=== PATIENT | male | born 1980 | race Caucasian/White ===

== ENCOUNTER 2024-02-14 15:43 | Emergency (ER) | payer OTHER, MEDICAID, SELFPAY ==
[2024-02-14 15:49] VITALS: BP 151/88; PULSE 95; RESP 18; TEMP 37; O2SAT 99; BMI 30.7
--- NOTE | 2024-02-14 16:14 | ED.ABDPAIN ---
HPI - Abdominal Pain <Zander Qureshi PA-C - Last Filed: 02/14/24 19:05> General Chief Complaint: Abdominal Pain Stated Complaint: abd px, hernia sx on 01/23 Time Seen by Provider: 02/14/24 16:14 Source: patient Mode of arrival: Ambulatory History of Present Illness HPI narrative: This is a 43-year-old male presents emergency department due to acute onset right lower quadrant pain. Patient reports having a hernia repair 21 days ago on 01/24/[address] Turk to the area. Two days ago he reports coughing causing some pain and went to [facility]. He was eventually discharged. He began coughing again today and noticed some sharp right lower quadrant pain where the hernia repair was done. Reports mild nausea. Denies any blood in his stool, diarrhea, constipation, fevers, chest pain, shortness of breath, or any other concerning signs or symptoms. Related Data Home Medications Medication Instructions Recorded Confirmed citalopram 40 mg tablet (Celexa) 40 mg PO QDAY ##0 03/17/13 hydroxyzine HCl 25 mg tablet 25 mg ##0 03/17/13 lamotrigine 100 mg tablet 100 mg PO ##0 03/17/13 (Lamictal) levetiracetam 1,000 mg tablet 1,000 mg PO BID ##0 03/17/13 (Keppra) Allergies Allergy/AdvReac Type Severity Reaction Status Date / Time morphine Allergy Intermediate SEVERELY Verified 02/14/24 16:31 CRAZY Review of Systems <Zander Qureshi PA-C - Last Filed: 02/14/24 19:05> Review of Systems Narrative: GENERAL: Denies chills, fatigue, malaise, fever, sweats. HEENT: Denies sinus pain, ear pain, sore throat, difficulty swallowing, dizziness. RESPIRATORY: Denies dyspnea, cough, wheezing, hemoptysis, sputum. CARDIOVASCULAR: Denies chest pain, palpitations, orthopnea, edema, GASTROINTESTINAL: Reports nausea and right lower quadrant abdominal pain : Denies dysuria, frequency, incontinence, hematuria, urinary retention. MUSCULOSKELETAL: denies weakness, joint pain, or bony pain SKIN: Denies rash, skin lesions, or other NEUROLOGIC: Denies weakness, headache, numbness, change in speech, confusion, seizures, incoordination. PSYCHIATRIC: No concerning psychosocial issues. 12 point review of systems is negative except for those stated above Patient History <Zander Qureshi PA-C - Last Filed: 02/14/24 19:05> Social History Smoking Status: Never smoker Smoking Status: Never smoker alcohol intake frequency: holidays/special occasions only Substance Use Type: does not use Exam <Zander Qureshi PA-C - Last Filed: 02/14/24 19:05> Narrative Exam Narrative: GENERAL: Well-developed patient, in mild distress. HEAD: Atraumatic. Normocephalic. EYES: Pupils equal round and reactive. Extraocular motions intact. No scleral icterus. No injection or drainage. ENT: Nose without bleeding, purulent drainage. Throat without erythema, tonsillar hypertrophy or exudate. Airway patent. NECK: Trachea midline. Non tender EXTREMITIES: No edema or joint tenderness. NEURO: AOx3. SKIN: No rash or erythema of visible areas Abdomen: Nondistended, tenderness to palpation to the right lower quadrant, no masses or hernias felt. Initial Vital Signs Initial Vital Signs: Vital Signs Temperature 98.6 F 02/14/24 15:49 Pulse Rate 95 H 02/14/24 15:49 Respiratory Rate 18 02/14/24 15:49 Blood Pressure 151/88 H 02/14/24 15:49 Pulse Oximetry 99 02/14/24 15:49 Oxygen Delivery Method Room Air 02/14/24 15:49 <Malathi Whiteside MD - Last Filed: 02/19/24 07:37> Initial Vital Signs Initial Vital Signs: Vital Signs Temperature 98.6 F 02/14/24 15:49 Pulse Rate 95 H 02/14/24 15:49 Respiratory Rate 18 02/14/24 15:49 Blood Pressure 151/88 H 02/14/24 15:49 Pulse Oximetry 99 02/14/24 15:49 Oxygen Delivery Method Room Air 02/14/24 15:49 Course <Zander Qureshi PA-C - Last Filed: 02/14/24 19:05> Orders Ordered: Discontinued Medications Hydromorphone HCl (Hydromorphone 0.5 Mg Inj) 0.5 mg IV NOW ONE Stop: 02/14/24 16:50 Last Admin: 02/14/24 16:59 Dose: 0.5 mg Documented By: JIM Hydromorphone HCl (Hydromorphone 0.5 Mg Inj) 0.5 mg IV NOW ONE Stop: 02/14/24 17:34 Last Admin: 02/14/24 17:38 Dose: 0.5 mg Documented By: YOANNA Sodium Chloride (Normal Saline 0.9%) 1,000 mls @ 1,000 mls/hr IV BOLUS ONE Stop: 02/14/24 17:20 Last Infusion: 02/14/24 18:51 Dose: Infused Documented By: Admin: 02/14/24 16:59 Dose: 1,000 mls/hr Documented By: JMI Morphine Sulfate (Morphine 4 Mg/Ml Inj) 4 mg IV NOW ONE Stop: 02/14/24 16:22 Last Admin: 02/14/24 18:54 Dose: Not Given Documented By: YOANNA Ondansetron HCl (Ondansetron 4 Mg/2 Ml Inj) 4 mg IV NOW ONE Stop: 02/14/24 16:22 Last Admin: 02/14/24 16:58 Dose: 4 mg Documented By: JIM Vital Signs Vital signs: Vital Signs - 8 hr 02/14/24 15:49 Temperature 98.6 F Pulse Rate 95 H Respiratory Rate 18 Blood Pressure 151/88 H Pulse Oximetry 99 Oxygen Delivery Method Room Air <Malathi Whiteside MD - Last Filed: 02/19/24 07:37> Orders Ordered: Discontinued Medications Hydromorphone HCl (Hydromorphone 0.5 Mg Inj) 0.5 mg IV NOW ONE Stop: 02/14/24 16:50 Last Admin: 02/14/24 16:59 Dose: 0.5 mg Documented By: JIM Hydromorphone HCl (Hydromorphone 0.5 Mg Inj) 0.5 mg IV NOW ONE Stop: 02/14/24 17:34 Last Admin: 02/14/24 17:38 Dose: 0.5 mg Documented By: YOANNA Sodium Chloride (Normal Saline 0.9%) 1,000 mls @ 1,000 mls/hr IV BOLUS ONE Stop: 02/14/24 17:20 Last Infusion: 02/14/24 18:51 Dose: Infused Documented By: Admin: 02/14/24 16:59 Dose: 1,000 mls/hr Documented By: JIM Morphine Sulfate (Morphine 4 Mg/Ml Inj) 4 mg IV NOW ONE Stop: 02/14/24 16:22 Last Admin: 02/14/24 18:54 Dose: Not Given Documented By: YOANNA Ondansetron HCl (Ondansetron 4 Mg/2 Ml Inj) 4 mg IV NOW ONE Stop: 02/14/24 16:22 Last Admin: 02/14/24 16:58 Dose: 4 mg Documented By: JIM Vital Signs Vital signs: Vital Signs - 8 hr 02/14/24 15:49 Temperature 98.6 F Pulse Rate 95 H Respiratory Rate 18 Blood Pressure 151/88 H Pulse Oximetry 99 Oxygen Delivery Method Room Air MDM - Abdominal Pain <Zander Qureshi PA-C - Last Filed: 02/14/24 19:05> Lab Data 02/14/24 16:42 02/14/24 16:42 Labs: Lab Results 02/14/24 Range/Units 16:42 WBC 10.6 (4.5-11.0) X10^3/uL RBC 4.69 (4.5-5.9) X10^6/uL Hgb 13.7 (13.5-17.5) g/dL Hct 41.0 (41-53) % MCV 87.4 (80-100) fL MCH 29.2 (26-34) PG MCHC 33.4 (30-36) % RDW 12.6 (11.6-14.8) % Plt Count 308 (150-400) X10^3/uL Neut % (Auto) 69.1 (50-75) % Lymph % (Auto) 23.6 L (25-40) % [place] % (Auto) 5.8 (3-14) % Eos % (Auto) 0.9 L (2-4) % Baso % (Auto) 0.6 (0-2) % Neut # (Auto) 7300 H (9028-3741) /uL Lymph # (Auto) 2500 (9605-0054) /uL [place] # (Auto) 600 (0-900) /uL Eos # (Auto) 100 (0-450) /uL Baso # (Auto) 100 (0-100) /uL Sodium 138 (137-145) mmol/L Potassium 3.5 (3.4-5.1) mmol/L Chloride 104 (98-107) mmol/L Carbon Dioxide 28 (22-32) mmol/L BUN 9 (9-20) mg/dL Creatinine 0.51 L (0.66-1.25) mg/dL Estimated GFR > 60 (>60) mL/min BUN/Creatinine Ratio 17.6 (6-22) Glucose 93 (70-100) mg/dL Calcium 9.1 (8.4-10.2) mg/dL Total Bilirubin 0.6 (0.2-1.3) mg/dL AST 28 (17-59) IU/L ALT 21 (<50) IU/L Alkaline Phosphatase 49 (38-126) U/L Total Protein 7.8 (6.3-8.2) g/dL Albumin 4.8 (3.5-5.0) g/dL Globulin 3.0 (1.7-4.1) g/dL Albumin/Globulin Ratio 1.6 (1.0-2.8) Lipase 75 (23-300) U/L Imaging Data Chest x-ray: Radiologist's Impression: [address] [address] XRay Report Signed Patient: Robin Bennett MR#: [id number] : 1980 Acct:[id number] Age/Sex: 43 / M Date of Service: 02/14/24 Loc: ED Accession Number: [id number] Procedure: XR chest 1V Ordering Provider: Zander Qureshi P.A-C PROCEDURE: XR CHEST 1V INDICATIONS: Abdominal pain TECHNIQUE: One view of the chest was acquired. COMPARISON: [facility], CHEST 2 VIEW, 03/17/2013, 14:00. FINDINGS: Surgical changes and devices: None. Lungs and pleura: Lungs are clear. No pleural effusions or pneumothorax. Mediastinum: Mediastinal contours appear normal. Heart size is normal. Bones and chest wall: No suspicious bony lesions. Overlying soft tissues appear unremarkable. IMPRESSION: No acute pulmonary process. Dictated by: Nicole Jimenez M.D. on 02/14/2024 at 16:47 Approved by: Nicole Jimenez M.D. on 02/14/2024 at 16:47 CT scan - abdomen/pelvis: Radiologist's Impression: [address] [address] [address] Scan Report Signed Patient: Robin Bennett MR#: [id number] : 1980 Acct:[id number] Age/Sex: 43 / M Date of Service: 02/14/24 Loc: ED Accession Number: [id number] Procedure: CT abdomen pelvis w con Ordering Provider: Zander Qureshi P.A-C PROCEDURE: CT ABDOMEN PELVIS W CON INDICATIONS: RLQ pain after coughing after hernia repair TECHNIQUE: After the administration of intravenous contrast, axial sections acquired from the lung bases to the pubic symphysis. Coronal and sagittal reformats were performed. For radiation dose reduction, the following was used: automated exposure control, adjustment of mA and/or kV according to patient size. COMPARISON: [facility], CT, CT CHEST ABDOMEN PELVIS WITH CONTRAST, 02/12/2024, 0:50. FINDINGS: Image quality: Diagnostic Lower chest: Unremarkable lung bases Liver: Unremarkable Gallbladder and biliary system: Unremarkable, nondilated Pancreas: No ductal dilation Spleen: Nonenlarged Adrenals: No discrete nodules Kidneys: No solid mass. Subcentimeter lesions are too small characterize, usually cysts. No hydronephrosis Vessels and lymph nodes: The main portal vein is patent. No abdominal aortic aneurysm. No pathologic lymph nodes by size criteria. There is a questionable small filling defect in the left common femoral (2/80). Bowel and peritoneum: No evidence of small bowel obstruction. No pathologic ascites or drainable abscess. Few colonic diverticula. The appendix is nondilated. Body wall: Unremarkable, no fluid collection. No discrete inguinal hernia. Postoperative changes, mild edema and fluid is seen in the right inguinal region. Pelvis: Unremarkable. Prostate is not well evaluated on this study, there is heterogeneous enhancement. Bones: No acute or suspicious osseous finding. There are degenerative changes. IMPRESSION: The appendix is nondilated. No discrete recurrent hernia. Mild right inguinal edema and fluid favored to be postoperative without drainable fluid collection. Clinical followup is recommended. If there is new or worsening clinical concern, reimaging could be obtained. Questionable filling defect in the left common femoral vein, consider sonographic correlation. Other findings above. Dictated by: Edgar Paulson M.D. on 02/14/2024 at 17:40 Approved by: Edgar Paulson M.D. on 02/14/2024 at 17:46 [facility] Narrative Medical decision making narrative: ED course: This is a 43-year-old male presents to the emergency department due to acute onset right lower quadrant pain at the area where he had a hernia repair with Dr. Bennett in [place] about [address] abdomen and pelvis with contrast showed no recurrent hernias and mild edema and fluid suspect to be postoperative. No concerning new abnormalities. Attempted to contact Dr. Bennett's answering service to discuss the patient with his group but did not receive a call back. Lab work was reassuring, no leukocytosis. We will discharge and instructed patient to follow up outpatient with Dr. Bennett. CC: Abdominal pain Complicating co-morbidities: Recent hernia repair surgery Data collected from: Previous notes Medical records reviewed: Patient was not been to this emergency department in the past. Patient was seen at [facility] 2 days ago for similar complaints. They did a CT chest abdomen and pelvis which showed no abnormalities. Differential considered, but not limited to: Postoperative complication, abscess, small-bowel obstruction Exam documented above, pertinent findings include: Some tenderness to palpation to the right lower quadrant although no palpable recurrent hernias Lab Test results independently reviewed as above. Pertinent findings: No leukocytosis Imaging studies independently reviewed: CT scan showed no recurrent hernia, and no other concerning changes Scores Used: None MIPS Elements: None Consultations: None Treatments: IV Dilaudid and Zofran and fluids Re-evaluations: Patient reports pain feeling better Discussion: Discussed plan with the patient was comfortable with the plan Diagnosis: Abdominal pain Disposition: see below, along with detailed discharge instructions that have been reviewed with patient as well as indications for ED re-evaluation and additional outpatient follow up <Malathi Whiteside MD - Last Filed: 02/19/24 07:37> Lab Data Labs: Lab Results 02/14/24 Range/Units 16:42 WBC 10.6 (4.5-11.0) X10^3/uL RBC 4.69 (4.5-5.9) X10^6/uL Hgb 13.7 (13.5-17.5) g/dL Hct 41.0 (41-53) % MCV 87.4 (80-100) fL MCH 29.2 (26-34) PG MCHC 33.4 (30-36) % RDW 12.6 (11.6-14.8) % Plt Count 308 (150-400) X10^3/uL Neut % (Auto) 69.1 (50-75) % Lymph % (Auto) 23.6 L (25-40) % [place] % (Auto) 5.8 (3-14) % Eos % (Auto) 0.9 L (2-4) % Baso % (Auto) 0.6 (0-2) % Neut # (Auto) 7300 H (2632-4086) /uL Lymph # (Auto) 2500 (5577-8470) /uL [place] # (Auto) 600 (0-900) /uL Eos # (Auto) 100 (0-450) /uL Baso # (Auto) 100 (0-100) /uL Sodium 138 (137-145) mmol/L Potassium 3.5 (3.4-5.1) mmol/L Chloride 104 (98-107) mmol/L Carbon Dioxide 28 (22-32) mmol/L BUN 9 (9-20) mg/dL Creatinine 0.51 L (0.66-1.25) mg/dL Estimated GFR > 60 (>60) mL/min BUN/Creatinine Ratio 17.6 (6-22) Glucose 93 (70-100) mg/dL Calcium 9.1 (8.4-10.2) mg/dL Total Bilirubin 0.6 (0.2-1.3) mg/dL AST 28 (17-59) IU/L ALT 21 (<50) IU/L Alkaline Phosphatase 49 (38-126) U/L Total Protein 7.8 (6.3-8.2) g/dL Albumin 4.8 (3.5-5.0) g/dL Globulin 3.0 (1.7-4.1) g/dL Albumin/Globulin Ratio 1.6 (1.0-2.8) Lipase 75 (23-300) U/L Discharge Plan Departure Patient Disposition: Home Clinical Impression: Abdominal pain Activity Restrictions/Additional Instructions: Thank you for coming to the [facility] Emergency Department today. As we discussed the CT scan showed no new concerning changes. Please call Dr. Peterson office tomorrow to arrange for an earlier appointment for follow up. Your lab work today was reassuring as well. I recommended Tylenol and ibuprofen as needed for the pain. Please also do your best to avoid any sneezing or coughing or anything that would cause pressure in your abdomen. Please return to the emergency department if you develop any fevers, nausea, vomiting, or any other concerning signs or symptoms. I hope you feel better soon. Please follow up with your primary care provider within a week if your symptoms continue. If you do not have a primary care provider please contact the [facility] Resource line at [phone]. They will ask some questions about your medical history and help you get set up with a provider in the community. Prescriptions: No Action citalopram [Celexa] 40 MG tablet 40 mg PO QDAY Qty: 0 levetiracetam [Keppra] 1,000 MG tablet 1,000 mg PO BID Qty: 0 lamotrigine [Lamictal] 100 MG tablet 100 mg PO Qty: 0 hydroxyzine HCl 25 MG tablet 25 mg Qty: 0 Referrals: Miscellaneous,DoctorMD [Primary Care Provider] - Stand Alone Forms: Patient Portal/API ED Sign-out <Malathi Whiteside MD - Last Filed: 02/19/24 07:37> Cosign ED Attending Vidhi Attestation: I was immediately available in the department for consultation throughout this patient's visit. Malathi Whiteside MD
--- NOTE | 2024-02-14 16:21 | DI.RAD.S_ITS ---
PROCEDURE: XR CHEST 1V INDICATIONS: Abdominal pain TECHNIQUE: One view of the chest was acquired. COMPARISON: [facility], , CHEST 2 VIEW, 03/17/2013, 14:00. FINDINGS: Surgical changes and devices: None. Lungs and pleura: Lungs are clear. No pleural effusions or pneumothorax. Mediastinum: Mediastinal contours appear normal. Heart size is normal. Bones and chest wall: No suspicious bony lesions. Overlying soft tissues appear unremarkable. IMPRESSION: No acute pulmonary process. Dictated by: Nicole Jimenez M.D. on 02/14/2024 at 16:47 Approved by: Nicole Jimenez M.D. on 02/14/2024 at 16:47
--- NOTE | 2024-02-14 16:22 | DI.CT.S_ITS ---
PROCEDURE: CT ABDOMEN PELVIS W CON INDICATIONS: RLQ pain after coughing after hernia repair TECHNIQUE: After the administration of intravenous contrast, axial sections acquired from the lung bases to the pubic symphysis. Coronal and sagittal reformats were performed. For radiation dose reduction, the following was used: automated exposure control, adjustment of mA and/or kV according to patient size. COMPARISON: [facility], CT, CT CHEST ABDOMEN PELVIS WITH CONTRAST, 02/12/2024, 0:50. FINDINGS: Image quality: Diagnostic Lower chest: Unremarkable lung bases Liver: Unremarkable Gallbladder and biliary system: Unremarkable, nondilated Pancreas: No ductal dilation Spleen: Nonenlarged Adrenals: No discrete nodules Kidneys: No solid mass. Subcentimeter lesions are too small characterize, usually cysts. No hydronephrosis Vessels and lymph nodes: The main portal vein is patent. No abdominal aortic aneurysm. No pathologic lymph nodes by size criteria. There is a questionable small filling defect in the left common femoral (2/80). Bowel and peritoneum: No evidence of small bowel obstruction. No pathologic ascites or drainable abscess. Few colonic diverticula. The appendix is nondilated. Body wall: Unremarkable, no fluid collection. No discrete inguinal hernia. Postoperative changes, mild edema and fluid is seen in the right inguinal region. Pelvis: Unremarkable. Prostate is not well evaluated on this study, there is heterogeneous enhancement. Bones: No acute or suspicious osseous finding. There are degenerative changes. IMPRESSION: The appendix is nondilated. No discrete recurrent hernia. Mild right inguinal edema and fluid favored to be postoperative without drainable fluid collection. Clinical followup is recommended. If there is new or worsening clinical concern, reimaging could be obtained. Questionable filling defect in the left common femoral vein, consider sonographic correlation. Other findings above. Dictated by: Edgar Paulson M.D. on 02/14/2024 at 17:40 Approved by: Edgar Paulson M.D. on 02/14/2024 at 17:46
[2024-02-14 16:49] LABS: Add Manual Diff / Slide Review NO; Basophils Absolute Auto 100 /uL (0-100); Basophils Percent Auto 0.6 % (0-2); Eosinophils Absolute Auto 100 /uL (0-450); Eosinophils Percent Auto 0.9 % (2-4); Hemoglobin 13.7 g/dL (13.5-17.5); Lymphocytes Absolute Auto 2500 /uL (1100-4500); Lymphocytes Percent Auto 23.6 % (25-40); Mean Corpuscular HGB Conc 33.4 % (30-36); Mean Corpuscular Hemoglobin 29.2 PG (26-34); Mean Corpuscular Volume 87.4 fL (80-100); Monocytes Absolute Auto 600 /uL (0-900); Monocytes Percent Auto 5.8 % (3-14); Neutrophils Absolute Auto 7300 /uL (1500-7000); Neutrophils Percent Auto 69.1 % (50-75); Platelet Count 308 X10^3/uL (150-400); Red Blood Cell Count 4.69 X10^6/uL (4.5-5.9); Red Cell Distribution Width 12.6 % (11.6-14.8); White Blood Cell Count 10.6 X10^3/uL (4.5-11.0)
[2024-02-14] MEDS: ONDANSETRON 4 MG/2 ML INJ IV (16:58)
[2024-02-14] MEDS: HYDROMORPHONE 0.5 MG INJ IV ×2 (16:59→17:38)
[2024-02-14] MEDS: SODIUM CHLORIDE 0.9% 1,000 ML 1000 ML IV (16:59)
[2024-02-14 17:01] LABS: Alanine Aminotransferase 21 IU/L (<50); Albumin 4.8 g/dL (3.5-5.0); Albumin Globulin Ratio 1.6 (1.0-2.8); Alkaline Phosphatase 49 U/L (38-126); Aspartate Aminotransferase 28 IU/L (17-59); BUN Creatinine Ratio 17.6 (6-22); Bilirubin Total 0.6 mg/dL (0.2-1.3); Blood Urea Nitrogen 9 mg/dL (9-20); Calcium 9.1 mg/dL (8.4-10.2); Carbon Dioxide 28 mmol/L (22-32); Chloride 104 mmol/L (98-107); Estimated Glomerular Filt Rate > 60 mL/min (>60); Glucose 93 mg/dL (70-100); HEMOLYSIS < 15 (0-50); Lipase 75 U/L (23-300); Potassium 3.5 mmol/L (3.4-5.1); Sodium 138 mmol/L (137-145); Total Protein 7.8 g/dL (6.3-8.2)
[2024-02-14 19:12] VITALS: BP 132/77; PULSE 73; RESP 14; O2SAT 99
== END 2024-02-14 19:13 | disposition home or self-care (01) ==
PROVIDERS: Emergency Provider Physician Assistant Medical
DX: R10.31 Right lower quadrant pain (principal)
CPT/HCPCS: 36415; 71045; 74177; 80053; 83690; 85025; 96361; 96374; 96375; 96376; 99284; J1170; J2405; Q9967

== ENCOUNTER 2024-02-28 10:21 | Emergency (ER) | payer OTHER, MEDICAID, SELFPAY ==
[2024-02-28] VITALS (11 sets, daily range): BP systolic 128–168; BP diastolic 70–96; PULSE 64–94; RESP 16; TEMP 36.6; O2SAT 95–100; BMI 30.7
[2024-02-28] MEDS: KETOROLAC 30 MG/ML VIAL 15 MG IV (11:00)
[2024-02-28 11:20] LABS: Add Manual Diff / Slide Review NO; Basophils Absolute Auto 100 /uL (0-100); Basophils Percent Auto 0.7 % (0-2); Eosinophils Absolute Auto 400 /uL (0-450); Eosinophils Percent Auto 5.8 % (2-4); Hematocrit 41.2 % (41-53); Hemoglobin 13.6 g/dL (13.5-17.5); Lymphocytes Absolute Auto 2400 /uL (1100-4500); Lymphocytes Percent Auto 31.7 % (25-40); Mean Corpuscular HGB Conc 32.9 % (30-36); Mean Corpuscular Hemoglobin 29.1 PG (26-34); Mean Corpuscular Volume 88.2 fL (80-100); Monocytes Absolute Auto 600 /uL (0-900); Monocytes Percent Auto 7.8 % (3-14); Neutrophils Absolute Auto 4200 /uL (1500-7000); Platelet Count 228 X10^3/uL (150-400); Red Blood Cell Count 4.67 X10^6/uL (4.5-5.9); Red Cell Distribution Width 13.1 % (11.6-14.8); White Blood Cell Count 7.7 X10^3/uL (4.5-11.0)
[2024-02-28 11:21] LABS: Alanine Aminotransferase 31 IU/L (<50); Albumin 4.4 g/dL (3.5-5.0); Albumin Globulin Ratio 1.4 (1.0-2.8); Alkaline Phosphatase 45 U/L (38-126); Aspartate Aminotransferase 31 IU/L (17-59); Bilirubin Total 0.6 mg/dL (0.2-1.3); Blood Urea Nitrogen 13 mg/dL (9-20); Calcium 8.9 mg/dL (8.4-10.2); Carbon Dioxide 29 mmol/L (22-32); Chloride 106 mmol/L (98-107); Estimated Glomerular Filt Rate > 60 mL/min (>60); Globulin 3.1 g/dL (1.7-4.1); Glucose 97 mg/dL (70-100); HEMOLYSIS 28 (0-50); Lipase 91 U/L (23-300); Potassium 4.1 mmol/L (3.4-5.1); Sodium 139 mmol/L (137-145); Total Protein 7.5 g/dL (6.3-8.2)
[2024-02-28] MEDS: HYDROMORPHONE 0.5 MG INJ IV ×2 (11:37→14:30)
--- NOTE | 2024-02-28 12:43 | ED_ITS ---
HPI - Male Genitourinary General Chief complaint: Urogenital-Male Stated complaint: rt testicle and groin pain Time Seen by Provider: 02/28/24 10:38 Source: patient Mode of arrival: Ambulatory History of Present Illness HPI Narrative: 43-year-old male with history of prior TBI, multiple facial fractures left extremity and femur fracture several years ago required ICU stay. Patient has had right lower quadrant inguinal and testicular pain that reoccurred. Patient states he had a right inguinal hernia repair to beginning of January. That seems to have been healing well he has had persistent right testicular pain in his had what sounds like a hydrocele drained several times and had a nerve block which has been done several times by Urology. He has been referred to Urology at [facility] for a nerve ablation for his right testicle. Patient states he had driven over to go fishing today. He states started to have increasing pain in the right inguinal area down into his groin and testicle. States is quite painful. He is on amitriptyline but no other regular pain medications. He denies fevers or chills no nausea or vomiting, no back or flank pain that is new. He states he had a bowel movement in the last day, no black or bloody stools recently. He states he had a little bit of blood in his stool rate after his inguinal hernia repair. Denies any dysuria, urgency or frequency. He has not had any increasing swelling or redness in the testicle itself. Patient states only medication is currently met at amitriptyline. Had multiple orthopedic surgeries and surgeries for his face as well as right inguinal hernia repair. Has reported allergy to morphine but patient states he would pretty significant head injury with cerebral edema at that time so unclear if it has a true allergy. Former smoker, no recent alcohol, no recreational drugs. Related Data Home Medications Medication Instructions Recorded Confirmed citalopram 40 mg tablet (Celexa) 40 mg PO QDAY ##0 03/17/13 hydroxyzine HCl 25 mg tablet 25 mg ##0 03/17/13 lamotrigine 100 mg tablet 100 mg PO ##0 03/17/13 (Lamictal) levetiracetam 1,000 mg tablet 1,000 mg PO BID ##0 03/17/13 (Keppra) Previous Rx's Medication Instructions Recorded oxycodone 5 mg tablet 5 mg PO QID PRN pain #7 tabs 02/28/24 Allergies Allergy/AdvReac Type Severity Reaction Status Date / Time morphine Allergy Intermediate SEVERELY Verified 02/28/24 10:32 CRAZY Review of Systems Review of Systems ROS Unobtainable: All systems reviewed & are unremarkable except as noted in HPI and below Patient History Social History Smoking Status: Former smoker Smoking Status: Former smoker alcohol intake frequency: holidays/special occasions only Substance Use Type: does not use Exam Narrative Exam Narrative: GENERAL: Alert and oriented x three, male in moderate distress. HEENT: Head normocephalic, atraumatic, EOMI, pupils reactive, face symmetric, moist mucous membranes NECK: Supple, full range of motion CARDIOVASCULAR: Regular rate and rhythm without murmurs, rubs or gallops. RESPIRATORY: Breath sounds equal bilaterally, no wheezes rales or rhonchi. ABDOMEN: Soft, Patient has right lower quadrant tenderness, right inguinal tenderness but no hernia palpated. Normoactive bowel sounds all 4 quadrants. No guarding or rebound, rigidity, no mass : No CVA tenderness. Male: normal external examination, no penile discharge or lesions, testicles non-tender on the left, patient has some tenderness on the right no obvious swelling, erythema or other skin changes. Cremasteric reflex intact, no inguinal hernias noted. EXTREMITIES: Normal range of motion, no clubbing or edema. Neurovascularly intact NEUROLOGICAL: Cranial nerves II through XII grossly intact. Moving all extremities SKIN: Warm, dry, no petechiae, no rashes or lesions. Initial Vital Signs Initial Vital Signs: Vital Signs Temperature 97.8 F 02/28/24 10:30 Pulse Rate 94 H 02/28/24 10:30 Respiratory Rate 16 02/28/24 10:30 Blood Pressure 168/96 H 02/28/24 10:30 Pulse Oximetry 100 02/28/24 10:30 Oxygen Delivery Method Room Air 02/28/24 10:30 Course Orders Ordered: Discontinued Medications Hydromorphone HCl (Hydromorphone 0.5 Mg Inj) 0.5 mg IV NOW ONE Stop: 02/28/24 11:30 Last Admin: 02/28/24 11:37 Dose: 0.5 mg Documented By: [facility] Hydromorphone HCl (Hydromorphone 1 Mg Inj) 1 mg IV NOW ONE Stop: 02/28/24 13:05 Last Admin: 02/28/24 13:13 Dose: 1 mg Documented By: JERMAINE Hydromorphone HCl (Hydromorphone 0.5 Mg Inj) 0.5 mg IV NOW ONE Stop: 02/28/24 14:07 Last Admin: 02/28/24 14:30 Dose: 0.5 mg Documented By: JERMAINE Ketorolac Tromethamine (Ketorolac 30 Mg/Ml Vial) 15 mg IV NOW ONE Stop: 02/28/24 10:39 Last Admin: 02/28/24 11:00 Dose: 15 mg Documented By: [facility] Vital Signs Vital signs: Vital Signs - 8 hr 02/28/24 10:30 02/28/24 11:38 02/28/24 12:00 Temperature 97.8 F Pulse Rate 94 H 76 82 Respiratory Rate 16 Blood Pressure 168/96 H Pulse Oximetry 100 99 97 Oxygen Delivery Method Room Air 02/28/24 12:30 02/28/24 13:00 02/28/24 13:31 Temperature Pulse Rate 77 70 75 Respiratory Rate Blood Pressure Pulse Oximetry 97 95 Oxygen Delivery Method 02/28/24 13:46 02/28/24 13:46 02/28/24 14:00 Temperature Pulse Rate 87 72 Respiratory Rate Blood Pressure 140/80 Pulse Oximetry 99 97 Oxygen Delivery Method 02/28/24 14:00 02/28/24 14:30 02/28/24 14:30 Temperature Pulse Rate 75 Respiratory Rate Blood Pressure 133/78 147/85 H Pulse Oximetry 97 Oxygen Delivery Method 02/28/24 15:00 02/28/24 15:00 Temperature Pulse Rate 64 Respiratory Rate Blood Pressure 133/86 Pulse Oximetry 97 Oxygen Delivery Method Room Air MDM - Male Genitourinary Lab Data 02/28/24 11:00 02/28/24 11:00 Labs: Lab Results 02/28/24 Range/Units 11:00 WBC 7.7 (4.5-11.0) X10^3/uL RBC 4.67 (4.5-5.9) X10^6/uL Hgb 13.6 (13.5-17.5) g/dL Hct 41.2 (41-53) % MCV 88.2 (80-100) fL MCH 29.1 (26-34) PG MCHC 32.9 (30-36) % RDW 13.1 (11.6-14.8) % Plt Count 228 (150-400) X10^3/uL Neut % (Auto) 54.0 (50-75) % Lymph % (Auto) 31.7 (25-40) % [place] % (Auto) 7.8 (3-14) % Eos % (Auto) 5.8 H (2-4) % Baso % (Auto) 0.7 (0-2) % Neut # (Auto) 4200 (4325-4500) /uL Lymph # (Auto) 2400 (4231-7217) /uL [place] # (Auto) 600 (0-900) /uL Eos # (Auto) 400 (0-450) /uL Baso # (Auto) 100 (0-100) /uL Sodium 139 (137-145) mmol/L Potassium 4.1 (3.4-5.1) mmol/L Chloride 106 (98-107) mmol/L Carbon Dioxide 29 (22-32) mmol/L BUN 13 (9-20) mg/dL Creatinine 0.65 L (0.66-1.25) mg/dL Estimated GFR > 60 (>60) mL/min BUN/Creatinine Ratio 20.0 (6-22) Glucose 97 (70-100) mg/dL Calcium 8.9 (8.4-10.2) mg/dL Total Bilirubin 0.6 (0.2-1.3) mg/dL AST 31 (17-59) IU/L ALT 31 (<50) IU/L Alkaline Phosphatase 45 (38-126) U/L Total Protein 7.5 (6.3-8.2) g/dL Albumin 4.4 (3.5-5.0) g/dL Globulin 3.1 (1.7-4.1) g/dL Albumin/Globulin Ratio 1.4 (1.0-2.8) Lipase 91 (23-300) U/L Urine Dip Bedside Urine Glucose Negative Bedside Urine Bilirubin - Negative Bedside Urine Ketone - Negative Urine Specific [place] 1.015 Bedside Urine Occult Blood - Negative Bedside Urine pH 7.0 Bedside Urine Protein - Negative Bedside Urine Urobilinogen - Negative Bedside Urine Nitrite - Negative Bedside Urine Leukocytes - Negative Esterase Imaging Data CT scan - abdomen/pelvis: Radiologist's Impression: [address] [address] [address] Scan Report Signed Patient: Robin Bennett MR#: [id number] : 1980 Acct:[id number] Age/Sex: 43 / M Date of Service: 02/28/24 Loc: ED Accession Number: [id number] Procedure: CT abdomen pelvis w con Ordering Provider: Jaycee Gooden D.O. PROCEDURE: CT ABDOMEN PELVIS W CON INDICATIONS: RLQ, right inguinal, right testicular pain, hx hernia repair TECHNIQUE: After the administration of intravenous contrast, axial sections acquired from the lung bases to the pubic symphysis. Coronal and sagittal reformats were performed. For radiation dose reduction, the following was used: automated exposure control, adjustment of mA and/or kV according to patient size. COMPARISON: [facility], US, US TESTICULAR SCROTUM + DOPPLER, 02/26/2024, 10:47. [facility], CT, CT CHEST ABDOMEN PELVIS WITH CONTRAST, 02/12/2024, 0:50. [facility], CT, CT ABDOMEN PELVIS WITH CONTRAST, 02/17/2024, 19:06. [facility], CT, CT ABDOMEN PELVIS W CON, 02/14/2024, 17:19. FINDINGS: Image quality: Diagnostic. Lower Chest: No significant findings. ABDOMEN: Liver: No solid mass. Gallbladder: No radiopaque gallstones or wall thickening. Biliary ducts: No biliary dilation. Pancreas: No ductal dilation. Spleen: Size is within normal limits. Adrenal Glands: No adrenal nodules. Kidneys and Ureters: No hydronephrosis. No solid mass. No complex renal cystic lesion which requires follow up. Stomach and Bowel: Normal colonic caliber, without significant wall thickening. Normal appendix. Peritoneum: No abnormal intraperitoneal fluid. No free air. Ventral Wall: No significant ventral hernia. Abdominal Nodes: No retroperitoneal or mesenteric adenopathy by size criteria. Vessels: Aorta and inferior vena cava are normal in size. PELVIS: Pelvic Organs: Unremarkable. Bladder: No bladder wall thickening, accounting for underdistention. Pelvic Nodes: No enlarged lymph nodes. Miscellaneous: No inguinal hernias are seen. Probable mesh at the right inguinal region. Bones: No aggressive osseous abnormality. IMPRESSION: 1. No loculated fluid collection. No bowel obstruction. Probable mesh at the right inguinal region. No recurrent hernia. 2. No appendicitis. No hydronephrosis. Dictated by: Aries Glass M.D. on 02/28/2024 at 13:40 Approved by: Aries Glass M.D. on 02/28/2024 at 13:53 scrotum US: Radiologist's Impression: [address] [address] Ultrasound Report Signed Patient: Robin Bennett MR#: [id number] : 1980 Acct:[id number] Age/Sex: 43 / M Date of Service: 02/28/24 Loc: ED Accession Number: [id number] Procedure: US scrotum Ordering Provider: Jaycee Gooden D.O. PROCEDURE: US SCROTUM INDICATIONS: RIGHT TESTICULAR PAIN TECHNIQUE: Real-time scanning was performed of the scrotum and testicles, with image documentation. Color and pulse Doppler interrogation was performed of both testicles. COMPARISON: None. FINDINGS: Right: Testicle is normal in size at 4.7 x 1.8 x 2.8 cm, and homogenous in echotexture. Epididymis is normal in overall size and morphology. A couple of subcentimeter epididymal head cysts are present, benign. No hydrocele or varicoceles. Overlying scrotal skin is normal in thickness. Left: Testicle is normal in size at 3.8 x 1.9 x 2.8 cm, and homogeneous in echotexture. Epididymis is normal in overall size and morphology. No hydrocele or varicoceles. Overlying scrotal skin is normal in thickness. Doppler: Color and pulse Doppler demonstrate normal and symmetric arterial flow in both testicles. IMPRESSION: No evidence of infection or torsion. Dictated by: Cal Lawrence M.D. on 02/28/2024 at 15:08 Approved by: Cal Lawrence M.D. on 02/28/2024 at 15:09 [facility] Narrative Medical decision making narrative: Labs including CBC, CMP and lipase show no acute changes urine it is negative for any blood, infection or other changes. Patient has generalized tenderness in the inguinal area his incisions appear to be healing well but he is tender right lower quadrant into the inguinal canal and right testicle palpable hernias appreciated. Plan for CT abdomen pelvis to include down to the testicles. CT shows no loculated fluid collection no bowel obstruction probable mesh right inguinal region, no recurrent hernia no appendicitis no hydro. Discussed with patient does not rule out torsion is potential source of pain but no other acute changes noted. Patient received several doses of pain medication in the department. But is texting in between physical therapy technician states tolerated well. Ultrasound shows no acute changes no signs of infection or torsion. Patient recommended to follow up with his urologist, they may be able to perform a nerve block and can if that is helpful. We have given short course of pain medication. Discharge Plan Departure Patient Disposition: Home Clinical Impression: Right groin pain, Pain in right testicle Activity Restrictions/Additional Instructions: Follow up with your urologist. Please call to set an appointment. If the nerve block was helpful in the past it maybe helpful again. Your labs, imaging and urine did not show any new signs of infection, recurrent hernia torsion or other changes at this time. Can take Tylenol up to a 1000 mg every 6 hours and/or ibuprofen up to 600 mg every 6 hours. If inadequate for pain control you can take narcotic pain medication, 1-2 tablets every 6 hours as needed. This medication can make you sleepy do not drive, perform hazardous activities or make any major decisions while taking it. This medication will make you constipated please take a stool softener once to twice daily until stools are soft and regular. Prescription sent to [facility] Please return here with the closest emergency department for fevers, increasing pain, swelling, redness, persistent vomiting, lightheadedness or passing or other new concerning changes. Prescriptions: New oxycodone 5 mg tablet 5 mg PO QID PRN (Reason: pain) Qty: 7 0RF No Action citalopram [Celexa] 40 MG tablet 40 mg PO QDAY Qty: 0 levetiracetam [Keppra] 1,000 MG tablet 1,000 mg PO BID Qty: 0 lamotrigine [Lamictal] 100 MG tablet 100 mg PO Qty: 0 hydroxyzine HCl 25 MG tablet 25 mg Qty: 0 Referrals: Miscellaneous,Doctor, MD [Primary Care Provider] - Stand Alone Forms: Patient Portal/API
--- NOTE | 2024-02-28 12:48 | PC.NURSE ---
Nisreen has severe nerve pain in right testicle. Patient states he is suppose to be seen by for a surgery to remove nerve. Patient had right inguinal surgery one month ago, concerns he may have another.
--- NOTE | 2024-02-28 13:04 | DI.CT.S_ITS ---
PROCEDURE: CT ABDOMEN PELVIS W CON INDICATIONS: RLQ, right inguinal, right testicular pain, hx hernia repair TECHNIQUE: After the administration of intravenous contrast, axial sections acquired from the lung bases to the pubic symphysis. Coronal and sagittal reformats were performed. For radiation dose reduction, the following was used: automated exposure control, adjustment of mA and/or kV according to patient size. COMPARISON: [facility], US, US TESTICULAR SCROTUM + DOPPLER, 02/26/2024, 10:47. [facility], CT, CT CHEST ABDOMEN PELVIS WITH CONTRAST, 02/12/2024, 0:50. [facility], CT, CT ABDOMEN PELVIS WITH CONTRAST, 02/17/2024, 19:06. [facility], CT, CT ABDOMEN PELVIS W CON, 02/14/2024, 17:19. FINDINGS: Image quality: Diagnostic. Lower Chest: No significant findings. ABDOMEN: Liver: No solid mass. Gallbladder: No radiopaque gallstones or wall thickening. Biliary ducts: No biliary dilation. Pancreas: No ductal dilation. Spleen: Size is within normal limits. Adrenal Glands: No adrenal nodules. Kidneys and Ureters: No hydronephrosis. No solid mass. No complex renal cystic lesion which requires follow up. Stomach and Bowel: Normal colonic caliber, without significant wall thickening. Normal appendix. Peritoneum: No abnormal intraperitoneal fluid. No free air. Ventral Wall: No significant ventral hernia. Abdominal Nodes: No retroperitoneal or mesenteric adenopathy by size criteria. Vessels: Aorta and inferior vena cava are normal in size. PELVIS: Pelvic Organs: Unremarkable. Bladder: No bladder wall thickening, accounting for underdistention. Pelvic Nodes: No enlarged lymph nodes. Miscellaneous: No inguinal hernias are seen. Probable mesh at the right inguinal region. Bones: No aggressive osseous abnormality. IMPRESSION: 1. No loculated fluid collection. No bowel obstruction. Probable mesh at the right inguinal region. No recurrent hernia. 2. No appendicitis. No hydronephrosis. Dictated by: Aries Glass M.D. on 02/28/2024 at 13:40 Approved by: Aries Glass M.D. on 02/28/2024 at 13:53
[2024-02-28] MEDS: HYDROMORPHONE 1 MG INJ IV (13:13)
--- NOTE | 2024-02-28 14:04 | DI.US.S_ITS ---
PROCEDURE: US SCROTUM INDICATIONS: RIGHT TESTICULAR PAIN TECHNIQUE: Real-time scanning was performed of the scrotum and testicles, with image documentation. Color and pulse Doppler interrogation was performed of both testicles. COMPARISON: None. FINDINGS: Right: Testicle is normal in size at 4.7 x 1.8 x 2.8 cm, and homogenous in echotexture. Epididymis is normal in overall size and morphology. A couple of subcentimeter epididymal head cysts are present, benign. No hydrocele or varicoceles. Overlying scrotal skin is normal in thickness. Left: Testicle is normal in size at 3.8 x 1.9 x 2.8 cm, and homogeneous in echotexture. Epididymis is normal in overall size and morphology. No hydrocele or varicoceles. Overlying scrotal skin is normal in thickness. Doppler: Color and pulse Doppler demonstrate normal and symmetric arterial flow in both testicles. IMPRESSION: No evidence of infection or torsion. Dictated by: Cal Lawrence M.D. on 02/28/2024 at 15:08 Approved by: Cal Lawrence M.D. on 02/28/2024 at 15:09
== END 2024-02-28 16:00 | disposition home or self-care (01) ==
PROVIDERS: Emergency Provider Emergency Medicine
DX: N50.811 Right testicular pain (principal); R10.31 Right lower quadrant pain
CPT/HCPCS: 74177; 76870; 80053; 81003; 83690; 85025; 93975; 96374; 96375; 96376; 99283; 99284; J1170; J1885; Q9967

== ENCOUNTER 2024-03-05 15:18 | Emergency (ER) | payer OTHER, MEDICAID, SELFPAY ==
[2024-03-05 15:23] VITALS: BP 147/97; PULSE 110; RESP 18; TEMP 37.1; O2SAT 100; BMI 30.7
--- NOTE | 2024-03-05 15:36 | ED.GENADULT ---
HPI - General Adult General Chief complaint: Abdominal Pain Stated complaint: thinks he reinjured his hernia Time Seen by Provider: 03/05/24 15:26 Source: patient Mode of arrival: Ambulatory History of Present Illness HPI narrative: Patient is a 43-year-old male who had a history of a right inguinal hernia repair. He was also had issues with a fluid collection in his right testicle for which he was seen urology. Is scheduled to go to the [facility] to have what it sounds like a nerve ablation done to help with the discomfort in the area. He states that it has been several weeks since his surgery. He was lifting a relatively heavy object today when he would sudden pain in his right inguinal region. Related Data Home Medications Medication Instructions Recorded Confirmed citalopram 40 mg tablet (Celexa) 40 mg PO QDAY ##0 03/17/13 hydroxyzine HCl 25 mg tablet 25 mg ##0 03/17/13 lamotrigine 100 mg tablet 100 mg PO ##0 03/17/13 (Lamictal) levetiracetam 1,000 mg tablet 1,000 mg PO BID ##0 03/17/13 (Keppra) Previous Rx's Medication Instructions Recorded oxycodone 5 mg tablet 5 mg PO QID PRN pain #7 tabs 02/28/24 hydrocodone 5 mg-acetaminophen 325 1 tab PO Q8H PRN pain #7 tabs 03/05/24 mg tablet Allergies Allergy/AdvReac Type Severity Reaction Status Date / Time morphine Allergy Intermediate SEVERELY Verified 02/28/24 10:32 CRAZY Review of Systems Review of Systems ROS Unobtainable: All systems reviewed & are unremarkable except as noted in HPI and below Gastrointestinal Gastrointestinal: Reports system reviewed and no additional complaints, except as documented Genitourinary Genitourinary: Reports system reviewed and no additional complaints, except as documented Integumentary/Breasts Skin/Breast: Reports system reviewed and no additional complaints, except as documented Patient History Social History Smoking Status: Former smoker Smoking Status: Former smoker alcohol intake frequency: holidays/special occasions only Substance Use Type: marijuana Exam Initial Vital Signs Initial Vital Signs: Vital Signs Temperature 98.7 F 03/05/24 15:23 Pulse Rate 110 H 05/14/24 15:23 Respiratory Rate 18 03/05/24 15:23 Blood Pressure 147/97 H 03/05/24 15:23 Pulse Oximetry 100 03/05/24 15:23 Oxygen Delivery Method Room Air 03/05/24 15:23 GI Inspection: normal to inspection and non-distended Palpation: soft, No firm and No tender External: normal external exam and circumcised Scrotum: scrotum normal Testes: normal Skin General: no rashes or lesions noted Course Orders Ordered: Discontinued Medications Hydrocodone Bitart/Acetaminophen (Hydrocodone/Acet 5/325 Tablet) 1 tab PO NOW ONE Stop: 03/05/24 15:37 Ketorolac Tromethamine (Ketorolac 30 Mg/Ml Vial) 30 mg IM NOW ONE Stop: 03/05/24 15:37 Vital Signs Vital signs: Vital Signs - 8 hr 03/05/24 15:23 Temperature 98.7 F Pulse Rate 110 H Respiratory Rate 18 Blood Pressure 147/97 H Pulse Oximetry 100 Oxygen Delivery Method Room Air Medical Decision Making MDM Narrative Medical decision making narrative: Has no abdominal pain. Has tenderness along the right inguinal region however no inguinal hernia was felt. Does have some right testicular pain but low suspicion for torsion. There was no signs of infection. No indication for radiologic studies. I suspect that he either strained the area or potentially tore some scar tissue or maybe even a suture but no indication for emergent surgical consultation. Will discharge home with instructions to contact his operative surgeon for a follow-up. Discharge Plan Departure Patient Disposition: Home Clinical Impression: Right groin pain Activity Restrictions/Additional Instructions: No hernia was felt on your exam today. Recommend that you keep all of your scheduled medical appointments. I recommend that you avoid lifting heavy objects for the next several days. I also recommend supportive clothing. You can use ice over the area. Also recommend anti-inflammatories such as ibuprofen or Naprosyn. Pain medication for breakthrough pain. Prescriptions: New hydrocodone-acetaminophen 5-325 mg tablet 1 tab PO Q8H PRN (Reason: pain) Qty: 7 0RF No Action citalopram [Celexa] 40 MG tablet 40 mg PO QDAY Qty: 0 levetiracetam [Keppra] 1,000 MG tablet 1,000 mg PO BID Qty: 0 lamotrigine [Lamictal] 100 MG tablet 100 mg PO Qty: 0 hydroxyzine HCl 25 MG tablet 25 mg Qty: 0 oxycodone 5 mg tablet 5 mg PO QID PRN (Reason: pain) Qty: 7 0RF Referrals: Miscellaneous,Doctor, MD [Primary Care Provider] - Stand Alone Forms: Patient Portal/API
[2024-03-05] MEDS: HYDROCODONE/ACET 5/325 TABLET 1 TAB PO (15:42)
[2024-03-05] MEDS: KETOROLAC 30 MG/ML VIAL IM (15:42)
[2024-03-05 15:52] VITALS: BP 143/66; PULSE 88; RESP 18; O2SAT 99
== END 2024-03-05 15:54 | disposition home or self-care (01) ==
PROVIDERS: Emergency Provider Emergency Medicine
DX: R10.9 Unspecified abdominal pain (principal)
CPT/HCPCS: 96372; 99283; J1885

== ENCOUNTER 2024-03-17 11:39 | Emergency (ER) | payer OTHER, MEDICAID, SELFPAY ==
[2024-03-17 12:15] VITALS: BP 121/96; PULSE 90; RESP 18; TEMP 36.7; O2SAT 99; BMI 30.7
[2024-03-17] MEDS: KETOROLAC 30 MG/ML VIAL IM (13:42)
[2024-03-17 13:54] LABS: Appearance Urine UA Clear; Bilirubin Urine UA Negative (NEGATIVE); Color Urine UA Yellow; Glucose Urine UA NEGATIVE (Negative); Ketones Urine UA NEGATIVE (NEGATIVE); Leukocyte Esterase Urine UA NEGATIVE (NEGATIVE); Nitrite Urine UA NEGATIVE (Negative); Occult Blood Urine UA Negative (Negative); Protein Urine UA Negative (Negative); Specific Gravity Urine UA 1.015 (1.000-1.035); Urobilinogen Urine UA 0.2 E.U./dL (0.2)
[2024-03-17 13:55] LABS: Urine Volume 10mL (spun)
--- NOTE | 2024-03-17 14:04 | ED_ITS ---
HPI - Male Genitourinary <DILMA Elise - Last Filed: 03/17/24 16:08> General Chief complaint: Urogenital-Male Stated complaint: poss kidney stones Time Seen by Provider: 03/17/24 12:57 History of Present Illness HPI Narrative: 43-year-old male, former smoker, presents to the emergency department with right flank pain x3 days. Patient denies any trauma to that area or issues with his kidneys in the past. Patient had abdominal hernia surgery repair 1 month ago and is still recuperating. Patient has had issues with his right testicle, but not at this time. Patient states the pain starts at his right flank and radiates to right mid torso. Patient endorses difficulty urinating this morning. Related Data Home Medications Medication Instructions Recorded Confirmed citalopram 40 mg tablet (Celexa) 40 mg PO QDAY ##0 03/17/13 hydroxyzine HCl 25 mg tablet 25 mg ##0 03/17/13 lamotrigine 100 mg tablet 100 mg PO ##0 03/17/13 (Lamictal) levetiracetam 1,000 mg tablet 1,000 mg PO BID ##0 03/17/13 (Keppra) Previous Rx's Medication Instructions Recorded oxycodone 5 mg tablet 5 mg PO QID PRN pain #7 tabs 02/28/24 hydrocodone 5 mg-acetaminophen 325 1 tab PO Q8H PRN pain #7 tabs 03/05/24 mg tablet Allergies Allergy/AdvReac Type Severity Reaction Status Date / Time morphine Allergy Intermediate SEVERELY Verified 02/28/24 10:32 AYALA Review of Systems <DILMA Elise - Last Filed: 03/17/24 16:08> Review of Systems Narrative: Narrative: See HPI. GENERAL: Denies chills, fatigue, fever, sweats. HEENT: Denies sinus pain, ear pain, sore throat, difficulty swallowing, dizziness. RESPIRATORY: Denies dyspnea, cough, wheezing, sputum. CARDIOVASCULAR: Denies chest pain, palpitations, edema. GASTROINTESTINAL: Denies nausea, vomiting, abdominal pain, diarrhea, c onstipation. : Denies dysuria, frequency, incontinence, hematuria, urinary retention. Endorses right flank pain. MSK: Denies weakness, joint pain, or bony pain. SKIN: Denies rash, skin lesions, or pruritis. NEUROLOGIC: Denies weakness, dizziness, headache, numbness, confusion. PSYCHIATRIC: No concerning psychosocial issues. Patient History <DILMA Elise - Last Filed: 03/17/24 16:08> Social History Smoking Status: Former smoker Smoking Status: Former smoker tobacco type: cigarettes alcohol intake frequency: holidays/special occasions only Substance Use Type: marijuana Exam <DILMA Elise - Last Filed: 03/17/24 16:08> Narrative Exam Narrative: Exam Narrative: GENERAL: This is a well-nourished, well-developed patient, in no acute distress. HEAD: Atraumatic. Normocephalic. EYES: Pupils equal round and reactive. Extraocular motions intact. No scleral icterus, injection or drainage. NECK: Trachea midline. No JVD or lymphadenopathy. Nontender. CARDIOVASCULAR: Regular rate and rhythm without murmurs, peripheral pulses intact, cap refill <2 sec. RESPIRATORY: Breath sounds equal and clear bilaterally. No wheezes, rales, or rhonchi. No cough. No increased respiratory effort. No accessory muscle use. GASTROINTESTINAL: Abdomen soft, non-tender, nondistended without guarding or rebound. No suprapubic pain. MSK: Moves all extremities. Normal range of motion, no clubbing or edema. Neurovascularly intact. Positive right CVA tenderness. NEURO: A&O x 3. SKIN: Warm, dry, no rashes or lesions noted. Initial Vital Signs Initial Vital Signs: Vital Signs Temperature 98.0 F 03/17/24 12:15 Pulse Rate 90 03/17/24 12:15 Respiratory Rate 18 03/17/24 12:15 Blood Pressure 121/96 H 03/17/24 12:15 Pulse Oximetry 99 03/17/24 12:15 Oxygen Delivery Method Room Air 03/17/24 12:15 Reviewed <Mark Molina MD - Last Filed: 03/18/24 18:46> Initial Vital Signs Initial Vital Signs: Vital Signs Temperature 98.0 F 03/17/24 12:15 Pulse Rate 90 03/17/24 12:15 Respiratory Rate 18 03/17/24 12:15 Blood Pressure 121/96 H 03/17/24 12:15 Pulse Oximetry 99 03/17/24 12:15 Oxygen Delivery Method Room Air 03/17/24 12:15 Course <DILMA Elise - Last Filed: 03/17/24 16:08> Orders Ordered: Discontinued Medications Ketorolac Tromethamine (Ketorolac 30 Mg/Ml Vial) 30 mg IM NOW ONE Stop: 03/17/24 13:30 Last Admin: 03/17/24 13:42 Dose: 30 mg Documented By: YOANNA Ondansetron HCl (Ondansetron 4 Mg Odt) 4 mg SL NOW PRN PRN Reason: Nausea And Vomiting Ondansetron HCl (Ondansetron 4 Mg/2 Ml Inj) 4 mg IV NOW PRN PRN Reason: Nausea And Vomiting Oxycodone/Acetaminophen (Oxycodone/Acetaminophen 5/325 Tablet) 1 tab PO NOW ONE Stop: 03/17/24 14:18 Last Admin: 03/17/24 14:41 Dose: 1 tab Documented By: YOANNA Vital Signs Vital signs: Vital Signs - 8 hr 03/17/24 12:15 03/17/24 15:00 Temperature 98.0 F Pulse Rate 90 81 Respiratory Rate 18 14 Blood Pressure 121/96 H 124/73 Pulse Oximetry 99 99 Oxygen Delivery Method Room Air Room Air <Mark Molina MD - Last Filed: 03/18/24 18:46> Orders Ordered: Discontinued Medications Ketorolac Tromethamine (Ketorolac 30 Mg/Ml Vial) 30 mg IM NOW ONE Stop: 03/17/24 13:30 Last Admin: 03/17/24 13:42 Dose: 30 mg Documented By: YOANNA Ondansetron HCl (Ondansetron 4 Mg Odt) 4 mg SL NOW PRN PRN Reason: Nausea And Vomiting Ondansetron HCl (Ondansetron 4 Mg/2 Ml Inj) 4 mg IV NOW PRN PRN Reason: Nausea And Vomiting Oxycodone/Acetaminophen (Oxycodone/Acetaminophen 5/325 Tablet) 1 tab PO NOW ONE Stop: 03/17/24 14:18 Last Admin: 03/17/24 14:41 Dose: 1 tab Documented By: YOANNA Vital Signs Vital signs: Vital Signs - 8 hr 03/17/24 12:15 03/17/24 15:00 Temperature 98.0 F Pulse Rate 90 81 Respiratory Rate 18 14 Blood Pressure 121/96 H 124/73 Pulse Oximetry 99 99 Oxygen Delivery Method Room Air Room Air MDM - Male Genitourinary <DILMA Elise - Last Filed: 03/17/24 16:08> Differential Diagnosis Differential diagnosis: Likely urinary tract infection, acute retention of urine and other (Nephrolithiasis, back strain) Lab Data Labs: Lab Results 03/17/24 Range/Units 13:37 Urine Color Yellow Urine Appearance Clear Urine pH 7.0 (4.5-8.0) Ur Specific [place] 1.015 (1.000-1.035) Urine Protein Negative (Negative) Urine Glucose (UA) Negative (Negative) g/dL Urine Ketones Negative (NEGATIVE) Urine Occult Blood Negative (Negative) Urine Nitrate Negative (Negative) Urine Bilirubin Negative (NEGATIVE) Urine Urobilinogen 0.2 (0.2) E.U./dL Ur Leukocyte Esterase Negative (NEGATIVE) Urine RBC None seen (0-5/HPF) Urine WBC 0-1/hpf (0-5/HPF) Ur Squamous Epith Cells None seen (0-5/HPF) Urine Bacteria None seen (None) Ur Culture Indicated? Cult not indicated Vol Urine Centrifuged 10ml (spun) MDM Narrative Medical decision making narrative: 43-year-old male with right flank pain. Assessment was concerning for significant right flank pain. Renal ultrasound obtained. Toradol injection administered with no relief of discomfort. Percocet x 1 administered that has significantly improved his discomfort. Point of care urine dip was normal. Patient enquiring as to how long it will take to get the ultrasound as he is determined to leave to pick his brother up. At 3:55 p.m. patient determined he could wait no longer and left Against Medical Advice. Discussed in-depth reasoning for the ultrasound or CT scan to determine if he has a blockage of his kidney with worst case scenario being or loss of his kidney. Patient understood that by leaving without obtaining this testing, may be putting his health and life in jeopardy. Strongly recommended patient come in to the emergency room immediately if symptoms return. Patient verbalized understanding and was agreeable with course of action. <Mark Molina MD - Last Filed: 03/18/24 18:46> Lab Data Labs: Lab Results 03/17/24 Range/Units 13:37 Urine Color Yellow Urine Appearance Clear Urine pH 7.0 (4.5-8.0) Ur Specific [place] 1.015 (1.000-1.035) Urine Protein Negative (Negative) Urine Glucose (UA) Negative (Negative) g/dL Urine Ketones Negative (NEGATIVE) Urine Occult Blood Negative (Negative) Urine Nitrate Negative (Negative) Urine Bilirubin Negative (NEGATIVE) Urine Urobilinogen 0.2 (0.2) E.U./dL Ur Leukocyte Esterase Negative (NEGATIVE) Urine RBC None seen (0-5/HPF) Urine WBC 0-1/hpf (0-5/HPF) Ur Squamous Epith Cells None seen (0-5/HPF) Urine Bacteria None seen (None) Ur Culture Indicated? Cult not indicated Vol Urine Centrifuged 10ml (spun) Discharge Plan Departure Patient Disposition: Left Against Medical Advice Clinical Impression: Acute right flank pain Prescriptions: No Action citalopram [Celexa] 40 MG tablet 40 mg PO QDAY Qty: 0 levetiracetam [Keppra] 1,000 MG tablet 1,000 mg PO BID Qty: 0 lamotrigine [Lamictal] 100 MG tablet 100 mg PO Qty: 0 hydroxyzine HCl 25 MG tablet 25 mg Qty: 0 oxycodone 5 mg tablet 5 mg PO QID PRN (Reason: pain) Qty: 7 0RF hydrocodone-acetaminophen 5-325 mg tablet 1 tab PO Q8H PRN (Reason: pain) Qty: 7 0RF Referrals: Miscellaneous,Doctor, [Primary Care Provider] - Stand Alone Forms: Patient Portal/API, Against Medical Advice ED Sign-out <Mark Molina MD - Last Filed: 03/18/24 18:46> Cosign ED Attending Cosignature Attestation: I was immediately available in the department for consultation. I reviewed the documentation. AMA discharge noted. Supervised by Mark Molina MD.
[2024-03-17 14:11] LABS: Bacteria Urine None Seen; Culture Indicated Urine Cult Not Indicated; RBC Urine None Seen (0-5/HPF); Squamous Epithelial Cell Urine None Seen (0-5/HPF); WBC Urine 0-1/HPF (0-5/HPF)
[2024-03-17] MEDS: OXYCODONE/ACETAMINOPHEN 5/325 TABLET 1 TAB PO (14:41)
[2024-03-17 15:00] VITALS: BP 124/73; PULSE 81; RESP 14; O2SAT 99
--- NOTE | 2024-03-17 15:34 | PC.NURSE ---
Patient stated that he needed to leave to go get his brother at 5. Provider was made aware.
== END 2024-03-17 16:12 | disposition left against medical advice (07) ==
PROVIDERS: Emergency Provider Registered Nurse
DX: R10.9 Unspecified abdominal pain (principal); Z53.29 Procedure and treatment not carried out because of patient's decision for other reasons
CPT/HCPCS: 81001; 96372; 99283; J1885